=== PATIENT | male | born 1965 | race Caucasian/White ===

== ENCOUNTER 2020-02-22 12:10 | Emergency (ER) | payer OTHER, SELFPAY ==
[2020-02-22 12:12] VITALS: BP 133/76; PULSE 63; RESP 16; TEMP 36.1; O2SAT 98; BMI 23.6
--- NOTE | 2020-02-22 12:45 | RAD_ITS ---
INDICATION: Pt. fell 4-5 feet, pain EXAMINATION/TECHNIQUE: X-RAY - RIGHT XR Shoulder Min 2 Views 2 VIEWS COMPARISON: None. FINDINGS: SOFT TISSUES: No soft tissue swelling or gas. No radiopaque foreign body. BONES/JOINTS: There is an anterior dislocation of the right humeral head with an impaction fracture deformity involving the superior aspect of the right humeral head. RAD/Shoulder min 2 Views IMPRESSION: Anterior dislocation of the right humeral head with a Hill-Sachs fracture deformity. Electronically Signed: Dev Armando, at 13:55 EST Tel , Service support ,
--- NOTE | 2020-02-22 13:36 | ED.VIS.GEN ---
History of Present Illness Chief Complaint: Upper Extremity Injury Informant: Patient Narrative: Patient states that he was cutting wood today with a chainsaw. The piece of wood fell apart and he fell down onto the right shoulder. He notes limited range of motion of the shoulder. He states that his fingers feel tingling. He denies any other injuries. Past Medical History - Allergies and Home Meds Allergies/Adverse Reactions: Allergies succinylcholine Adverse Reaction (Verified 02/22/20 12:57) PT UNSURE OF REACTION in family, allergy as precaution Primary Care Physician: Amarjit Kc DO [STAFF PHYSICIAN] - (call for orthopedic follow up) Past Medical History: None Surgical History: noncontributory Lives: With Family Smoking Status: Current every day smoker Drugs: None Review of Systems General: Denies: Chills, Fever, Sweats Eyes: Denies: Visual changes - bilaterally, Diplopia ENT: Denies: Rhinorrhea, Sore throat Cardiovascular: Denies: Chest pain, Palpitations Respiratory: Denies: Dyspnea, Cough, Dyspnea on exertion Gastrointestinal: Denies: Abdominal pain, Nausea, Vomiting, Diarrhea, Melena, Hematochezia Genitourinary: Denies: Dysuria, Hematuria, Frequency Musculoskeletal: Reports: Extremity Pain. Denies: Back pain Skin: Denies: Rash, Wounds Neurological: Denies: Headache, Weakness, Numbness Physical Exam Vital Signs/Narrative: Vital Signs Temp Pulse Resp BP Pulse Ox 02/22/20 12:12 97 F L 63 16 133/76 H 98 Inital Vital Signs reviewed: Yes General: Well nourished, Well developed, No Acute Distress Head: Normocephalic, Atraumatic Eyes: Perrl, EOMI ENT: Moist mucous membranes, No rhinorrhea Neck: Supple, Nontender Cardiovascular: Regular rate, Regular rhythm, No murmurs Respiratory: No distress, CTA bilaterally, Chest nontender Abdomen: Soft, Nontender, Nondistended, Normal bowel sounds Back: Nontender, Normal Inspection Extremities: No edema, Tenderness - Right shoulder palpates anterior dislocation. He is able to move the fingers and sensation is there though he notes diminished touch. Normal radial and ulnar pulse. Skin: Normal color, No rash Neurological: Alert, Oriented x3, Cranial nerves II-XII grossly intact, Normal Strength, Normal Sensation Psychological: Normal affect, Normal Mood Diagnostic/Tx/Re-eval - Medical Decision Making X-rays were ordered through nursing protocol in triage. My interpretation of the plain films is a anterior inferior shoulder dislocation. Patient provided informed consent for the use of etomidate and fentanyl for procedural sedation. Patient was placed on the monitor given supplemental oxygen. He was reassessed just prior to the procedure. I administered the fentanyl and the etomidate. Once adequate sedation was achieved, using direct traction and Milch technique the shoulder was easily reduced. Is placed in a sling and swath. Total time of procedure was 5 minutes. Postreduction films were obtained. On my interpretation of the postreduction films the shoulder has been reduced. I will write for the patient have Percocet at home. He should follow-up with orthopedics. He should continue to use the sling and swath until cleared by them. ED Disposition - Plan for ED Patient: Diagnosis: Dislocation of right shoulder joint Instructions: ED Dislocation Shoulder Redu Prescriptions: Oxycodone HCl/Acetaminophen [Percocet 5/325] 1 tab PO Q6H PRN PRN 3 Days #12 tab PRN Reason: Pain Prescription Printed Referrals: Amarjit Kc DO [STAFF PHYSICIAN] - (call for orthopedic follow up)
[2020-02-22] MEDS: fentaNYL 100 MCG/2 ML Ampul 50 MCG IV (13:53)
[2020-02-22 13:55] VITALS: BP 139/78; PULSE 81; RESP 18; O2SAT 99
[2020-02-22] MEDS: Etomidate 20 MG/10 ML Vial 11 MG IV (13:55)
[2020-02-22 13:57] VITALS: BP 136/93; PULSE 57; RESP 18; O2SAT 97
[2020-02-22 14:02] VITALS: BP 126/80; BP 136/93; PULSE 56; RESP 16; O2SAT 97; O2SAT 98
--- NOTE | 2020-02-22 14:02 | RAD_ITS ---
INDICATION: POST REDUCTION RIGHT SHOULDER DISLOCATION EXAMINATION/TECHNIQUE: X-RAY - RIGHT XR Shoulder Min 2 Views 2 VIEWS COMPARISON: Previous right shoulder obtained on 02/22/2020 FINDINGS: There has been interval reduction of the previously noted anterior dislocation of the right shoulder which, on 2 images of this study appears to be in good position and alignment. A Hill-Sachs compression fracture deformities noted involving the superior lateral right humeral head. RAD/Shoulder min 2 Views IMPRESSION: The previously noted right shoulder dislocation has been reduced and is in good position. A residual Hill-Sachs fracture deformity is still seen. Electronically Signed: Dev Armando, at 14:51 EST Tel , Service support ,
[2020-02-22 14:46] VITALS: BP 115/76; PULSE 78; RESP 18; O2SAT 97
== END 2020-02-22 14:47 | disposition home or self-care (01) ==
LOC: ED 13:42
PROVIDERS: Emergency Provider Emergency Medicine
DX: S43.014A Anterior dislocation of right humerus, initial encounter (principal); W19.XXXA Unspecified fall, initial encounter; Y93.89 Activity, other specified; Y92.9 Unspecified place or not applicable; Y99.9 Unspecified external cause status; F17.200 Nicotine dependence, unspecified, uncomplicated
CPT/HCPCS: 23650; 73030; 99283; J7030; A4216